=== PATIENT | female | born 1950 | race Caucasian/White ===

== ENCOUNTER 2016-09-27 18:21 | Emergency (ER) | payer OTHER, BC ==
[2016-09-27 18:29] VITALS: PULSE 81; TEMP 97.4; BMI 23.6
[2016-09-27 18:55] VITALS: BP 168/63
--- NOTE | 2016-09-27 19:48 | PDOC ---
History of Present Illness - General History Source: Patient Exam Limitations: No Limitations <Jian Kerns - Last Filed: 09/27/16 19:44> - General History Source: Patient Exam Limitations: No Limitations - History of Present Illness Initial Comments: 09/27/16 19:48 The patient is a 66 year old female, with a significant past medical history of trigeminal neuralgia, mitral valve prolapse and anxiety, who presents to the emergency department with chest pain onset today. She describes her chest pain as a burning tightness, ranging from mild to moderate, with radiation up her neck. She denies modifying factors. She states that she had an initial episode, which lasted a couple of minutes and completely resolved after her aftab class. She notes that she took Zantac with minimal to no relief of her pain. She reports that she currently has no pain. She states that she is currently going through some personal stress involving her for the last couple of days. She also states that this symptom seems similar to her previous anxiety episodes. She reports that prior to coming to the ED she went to an urgent care , who ended up sending her to the ED. The patient denies shortness of breath, headache and dizziness. Denies fever, chills, nausea, vomit, diarrhea and constipation. Allergies: Sulfur Past surgical history: None reported Social history: No alcohol, tobacco or drug use reported PMD: Dr. Franca Dean ([phone]) Dr. Pricilla Cook ([facility]) <Giuseppe Reddy - Last Filed: 09/27/16 19:56> - General Chief Complaint: Pain, Acute Stated Complaint: CHEST PAIN Time Seen by Provider: 09/27/16 19:11 Past History - Past Medical History Other medical history: trigeminal neuralgia - Psycho/Social/Smoking Cessation Hx Anxiety: No Suicidal Ideation: No Smoking History: Never smoked Hx Alcohol Use: No Drug/Substance Use Hx: No Substance Use Type: Alcohol <Jian Kerns - Last Filed: 09/27/16 19:44> <Giuseppe Reddy - Last Filed: 09/27/16 19:56> - Past Medical History Allergies/Adverse Reactions: Allergies Allergy/AdvReac Type Severity Reaction Status Date / Time sulfur [From Sulfur-8] Allergy Verified 09/27/16 18:22 Home Medications: Ambulatory Orders OXcarbazepine [Trileptal] 150 mg PO BID 03/07/15 Review of Systems - Review of Systems Able to Perform ROS?: Yes Cardiac (ROS): Yes: Chest Pain (Burning Tightness sensation ) All Other Systems: Reviewed and Negative <Giuseppe Reddy - Last Filed: 09/27/16 19:56> *Physical Exam - Vital Signs Last Vital Signs Temp Pulse Resp BP Pulse Ox 97.4 F L 81 16 168/63 100 09/27/16 18:22 09/27/16 18:22 09/27/16 18:22 09/27/16 18:48 09/27/16 18:22 <Jian Kerns - Last Filed: 09/27/16 19:44> - Vital Signs Last Vital Signs Temp Pulse Resp BP Pulse Ox 97.4 F L 81 16 168/63 100 09/27/16 18:22 09/27/16 18:22 09/27/16 18:22 09/27/16 18:48 09/27/16 18:22 - Physical Exam General Appearance: Yes: Nourished, Appropriately Dressed, Other (slightly anxious and teary during conversation) HEENT: positive: Normal Voice Neck: positive: Other (No JVD) Respiratory/Chest: positive: Lungs Clear, Normal Breath Sounds, Other (Speaks full sentences ) Cardiovascular: positive: Regular Rhythm, Regular Rate, Other (No murmur ) Gastrointestinal/Abdominal: positive: Flat, Soft, Other (Non-distended ) Extremity: positive: Normal Inspection Neurologic: positive: incident engineer II-XII NML intact, Fully Oriented, Alert, Other ( Slightly Anxious ) <Giuseppe Reddy - Last Filed: 09/27/16 19:56> Progress Note - Progress Note Progress Note: Dr. Dean was Called at 7:33pm regarding the patient. Dr. Mi covering. Dr. Mi was consulted regarding the patient at 7:40pm Dr. Mi states that they will see the patient on Friday09/30/16 as a walk in. <Giuseppe Reddy - Last Filed: 09/27/16 19:56> *DC/Admit/Observation/Transfer <Jian Kerns - Last Filed: 09/27/16 19:44> - Attestations Scribe Attestion: 09/27/16 19:55 Documentation prepared by Giuseppe Reddy, acting as medical illustrator for Jian Kerns MD. <Giuseppe Reddy - Last Filed: 09/27/16 19:56> Diagnosis at time of Disposition: Dyspepsia - Discharge Dispostion Disposition: HOME Condition at time of disposition: Stable - Patient Instructions Additional Instructions: RELAXATION ADN RELEASE TECHNIQUES DISCUSSED SEE YOUR DOCTOR ON FRIDAY RETURN IF WORSENING OR NEW SYMPTOMS (SHORTNESS OF BREATH, SEVERE CHEST PAIN) BALANCED DIET, AVOID CITROUS, SPICY FOODS EAT FREQUENT, SMALL MEALS THROUGHOUT THE DAY
--- NOTE | 2016-09-30 12:31 | EKG ---
Test Reason : Blood Pressure : / mmHG Vent. Rate : 073 BPM Atrial Rate : 073 BPM P-R Int : 180 ms QRS Dur : 078 ms QT Int : 382 ms P-R-T Axes : 029 012 043 degrees QTc Int : 420 ms NORMAL SINUS RHYTHM LOW VOLTAGE QRS BORDERLINE ECG WHEN COMPARED WITH ECG OF 27-SEP-2016 18:45, NO SIGNIFICANT CHANGE WAS FOUND Confirmed by ALLISON DON MD ([id number]) on 09/30/2016 12:31:46 PM Referred By: MD ADRIAN Confirmed By:ALLISON DON MD
--- NOTE | 2016-09-30 12:32 | EKG ---
Test Reason : Blood Pressure : / mmHG Vent. Rate : 072 BPM Atrial Rate : 072 BPM P-R Int : 188 ms QRS Dur : 088 ms QT Int : 382 ms P-R-T Axes : 067 001 036 degrees QTc Int : 418 ms NORMAL SINUS RHYTHM NORMAL ECG NO PREVIOUS ECGS AVAILABLE Confirmed by ALLISON DON MD ([id number]) on 09/30/2016 12:32:02 PM Referred By: MD GAO Confirmed By:ALLISON DON MD
== END 2016-09-27 20:18 | disposition home or self-care (01) ==
LOC: FER 18:21
DX: R10.13 Epigastric pain (principal); G50.0 Trigeminal neuralgia; I34.1 Nonrheumatic mitral (valve) prolapse; F41.9 Anxiety disorder, unspecified
CPT/HCPCS: 93005; 93010; 99281-25

== ENCOUNTER 2017-08-05 15:55 | Emergency (ER) | payer OTHER, BC ==
[2017-08-05 16:03] VITALS: BP 155/85; PULSE 70; TEMP 98.1; BMI 24.7
[2017-08-05] MEDS ORDERED: DIPHTH,PERTUSS(ACELL),TET 0.5 ML DISP.SYRIN IM ONE (16:04)
[2017-08-05] MEDS ORDERED: ACETAMINOPHEN 500 MG TABLET (FP) PO ONE (16:05)
--- NOTE | 2017-08-05 16:07 | PDOC ---
History of Present Illness <Keyonna Snow - Last Filed: 08/05/17 16:26> - General History Source: Patient Exam Limitations: No Limitations - History of Present Illness Initial Comments: 08/05/17 16:45 The patient is a 67-year-old female, with a significant past medical history of plantar fasciitis of LT foot, who presents to the ED s/p fall today at 2:30 PM. The patient states that she was walking in wedged shoes on [place] and lost her footing. She denies any head trauma but is now complaining of LT foot pain, RT knee pain, and RT elbow pain. Pt did scrape her right knee. She reports that she will be seeing her Orthopedic Surgeon on Wednesday 08/08. She denies having any other complaints. Orthopedic Surgeon: Dr. Mckay Borrero ([facility]) <Laina Farmer - Last Filed: 08/05/17 16:54> - General Chief Complaint: Injury Stated Complaint: LEFT FOOT PAIN Time Seen by Provider: 08/05/17 16:03 Past History - Past Medical History COPD: No Other medical history: TRIGEMINAL NEURALGIA - Suicide/Smoking/Psychosocial Hx Smoking History: Never smoked Have you smoked in the past 12 months: No Hx Alcohol Use: (OCCASIONAL) Drug/Substance Use Hx: No Substance Use Type: Alcohol <Keyonna Snow - Last Filed: 08/05/17 16:26> <Laina Farmer - Last Filed: 08/05/17 16:54> - Past Medical History Allergies/Adverse Reactions: Allergies Allergy/AdvReac Type Severity Reaction Status Date / Time Sulfa (Sulfonamide Allergy Verified 08/05/17 15:57 Antibiotics) Home Medications: Ambulatory Orders OXcarbazepine [Trileptal] 150 mg PO DAILY 03/07/15 Mv-Mn/Iron/FA/Herbal Cmplx#190 [Vitamin D3 Complete Caplet] 1 each PO DAILY Review of Systems - Review of Systems Able to Perform ROS?: Yes Comments:: 08/05/17 16:46 GENERAL/CONSTITUTIONAL: No fever or chills. No weakness. HEAD, EYES, EARS, NOSE AND THROAT: No change in vision. No ear pain or discharge. No sore throat. CARDIOVASCULAR: No chest pain or shortness of breath. RESPIRATORY: No cough, wheezing, or hemoptysis. GASTROINTESTINAL: No nausea, vomiting, diarrhea or constipation. GENITOURINARY: No dysuria, frequency, or change in urination. MUSCULOSKELETAL: No joint swelling or pain. No neck or back pain. EXTREMITIES: (+)Left foot pain, Right knee pain, Right elbow pain SKIN: (+)Scrape to right knee. NEUROLOGIC: No headache, vertigo, loss of consciousness, or change in strength/ sensation. ENDOCRINE: No increased thirst. No abnormal weight change. HEMATOLOGIC/LYMPHATIC: No anemia, easy bleeding, or history of blood clots. ALLERGIC/IMMUNOLOGIC: No hives or skin allergy. <Laina Farmer - Last Filed: 08/05/17 16:54> *Physical Exam - Vital Signs Last Vital Signs Temp Pulse Resp BP Pulse Ox 98.1 F 70 18 155/85 99 08/05/17 15:55 08/05/17 15:55 08/05/17 15:55 08/05/17 15:55 08/05/17 15:55 <Keyonna Snow - Last Filed: 08/05/17 16:26> - Vital Signs Last Vital Signs Temp Pulse Resp BP Pulse Ox 98.1 F 70 18 155/85 99 08/05/17 15:55 08/05/17 15:55 08/05/17 15:55 08/05/17 15:55 08/05/17 15:55 - Physical Exam Comments: 08/05/17 16:47 GENERAL: Awake, alert, and fully oriented, in no acute distress HEAD: Atraumatic, No signs of trauma EYES: PERRLA, EOMI, sclera anicteric, conjunctiva clear ENT: Auricles normal inspection, nares patent, oropharynx clear without exudates. Moist mucosa. NECK: Normal ROM, supple, no lymphadenopathy, JVD, or masses LUNGS: Breath sounds equal, clear to auscultation bilaterally. No wheezes, and no crackles HEART: Regular rate and rhythm, normal S1 and S2, no murmurs, rubs or gallops ABDOMEN: Soft, nontender, normoactive bowel sounds. No guarding, no rebound. No masses EXTREMITIES: (+)Lateral 4th and 5th metatarsal tenderness; RT Knee: There is a superficial laceration. No effusions, no ecchymosis. No malleolar tenderness. No elbow deformity. Skin of right elbow is intact. Full range of motion of hips and kneesNo clubbing or cyanosis. No cords. NEUROLOGICAL: SKIN: Warm, Dry, normal turgor, no rashes or lesions noted <Laina Farmer - Last Filed: 08/05/17 16:54> Procedures - Splinting Splint Location: Left: Foot Pre-Proc Neuro Vasc Exam: normal Hand-Made Type: orthoglass Splint Type: Yes: Posterior <Keyonan Snow - Last Filed: 08/05/17 16:26> ED Treatment Course - RADIOLOGY Radiology Studies Ordered: Category Date Time Status FOOT-LEFT [RAD] Stat Radiology 08/05/17 15:59 Ordered <Keyonna Snow - Last Filed: 08/05/17 16:26> Medical Decision Making - Medical Decision Making 08/05/17 16:05 67-year-old female with a prior left foot injury here today with status post fall complaining of left foot pain right knee abrasion and right elbow pain. Patient states she tripped on [employer] around 2:30 PM twisting her left ankle and landing on her right knee. No head injury no LOC pain is moderate ambulating with a limp took Motrin prior to arrival with some relief On exam she has minimal left lateral dorsal foot tenderness no ecchymosis or swelling ankle is nontender. Right knee has a superficial abrasion but is fully intact FROM. Right elbow is nontender, FROM. Head is atraumatic Plan x-ray of the left foot to rule out fracture, bacitracin to her wound, tetanus and Tylenol for pain control likely flat soled shoe and crutches as needed and outpatient podiatry follow-up which she has scheduled for this following Friday 4 days from today 08/05/17 16:24 xray concerning for [place] fx. will splint posterior splint, crutches and non weight bearing until follow up with podiatry in 4 days. <Keyonna Snow - Last Filed: 08/05/17 16:26> *DC/Admit/Observation/Transfer <Keyonna Snow - Last Filed: 08/05/17 16:26> - Attestations Scribe Attestion: 08/05/17 16:54 Documentation prepared by Laina Farmer, acting as medical device sales for Keyonna Snow MD. <DarianLaina - Last Filed: 08/05/17 16:54> Diagnosis at time of Disposition: [place] fracture - Discharge Dispostion Disposition: HOME Condition at time of disposition: Improved - Referrals Referrals: Franca Dean [Primary Care Provider] - - Patient Instructions Printed Discharge Instructions: Foot Fracture Additional Instructions: Wear splint until follow-up with your ticket manager. You should not put any weight on that left foot. Use crutches to aid with ambulation. Take ibuprofen 600 mg every 8 hours as needed for pain. Elevate foot to reduce swelling and therefore pain. Return for any problems or concerns - Post Discharge Activity
[2017-08-05] MEDS ORDERED: ACETAMINOPHEN 500 MG TABLET (FP) ONE (16:17)
== END 2017-08-05 16:40 | disposition home or self-care (01) ==
LOC: FER 15:55
PROC: 2W3RX1Z Immobilization of Left Lower Leg using Splint (ICD-10-PCS; principal; 2017-08-05)
PROC: 3E0234Z Introduction of Serum, Toxoid and Vaccine into Muscle, Percutaneous Approach (ICD-10-PCS; 2017-08-05)
DX: S92.355A Nondisplaced fracture of fifth metatarsal bone, left foot, initial encounter for closed fracture (principal); W18.39XA Other fall on same level, initial encounter; Y93.89 Activity, other specified; Y92.9 Unspecified place or not applicable
CPT/HCPCS: 29515; 73630-TC-LT; 90471; 90715; 99282-25

== ENCOUNTER 2018-02-27 14:50 | Emergency (ER) | payer OTHER, BC ==
[2018-02-27 14:58] VITALS: BP 152/92; PULSE 69; TEMP 98.4; BMI 25.0
--- NOTE | 2018-02-27 14:58 | PDOC ---
History of Present Illness - General History Source: Patient Exam Limitations: No Limitations <Keyonna Snow - Last Filed: 02/27/18 16:36> - General History Source: Patient Exam Limitations: No Limitations - History of Present Illness Initial Comments: 02/27/18 15:05 The patient is a 68 year old female, with a significant past medical history of trigeminal neuralgia and left metatarsal fracture, who presents to the emergency department s/p mechanical fall at approximately 12:45, with headache and nausea. Patient reports she was outside when she tripped and fell, landing on her right side and hitting her head. Patient reports associated headache, right eye pain/swelling, right knee pain/abrasion, and right wrist pain/ abrasion. Patient reports taking Tylenol for her symptoms with minimal relief. During her ride home, patient reports developing nausea, but denies any abdominal pain, vomiting, diarrhea, or constipation. She denies any loss of consciousness, blurry vision, double vision, neck/back pain, dizziness, or lightheadedness. She denies any chest pain, shortness of breath, diaphoresis, or palpitations. Patient reports she is not on any blood thinners. She denies any recent travel or sick contacts. Patient's last tetanus shot was in July 2017. Allergies: Sulfa(Sulfonamide antibiotics) Past Surgical History: None reported Social History: Non smoker. No ETOH or recreational drug use. <Yaw White - Last Filed: 02/27/18 16:53> - General Chief Complaint: Injury Stated Complaint: HEAD/FACE INJURY, TRIP AND FALL Time Seen by Provider: 02/27/18 14:51 Past History - Past Medical History COPD: No Other medical history: TRIGEMINAL NEURALGIA, LF METATARSAL FX - Suicide/Smoking/Psychosocial Hx Smoking History: Never smoked Have you smoked in the past 12 months: No Hx Alcohol Use: No Drug/Substance Use Hx: No Substance Use Type: Alcohol <Keyonna Snow - Last Filed: 02/27/18 16:36> <Yaw White - Last Filed: 02/27/18 16:53> - Past Medical History Allergies/Adverse Reactions: Allergies Allergy/AdvReac Type Severity Reaction Status Date / Time Sulfa (Sulfonamide Allergy Verified 02/27/18 14:51 Antibiotics) Home Medications: Ambulatory Orders OXcarbazepine [Trileptal] 300 mg PO DAILY 03/07/15 Acetaminophen [Tylenol -] 1,000 mg PO ASDIR 02/27/18 Review of Systems - Review of Systems Able to Perform ROS?: Yes Comments:: 02/27/18 15:05 GENERAL/CONSTITUTIONAL: No fever or chills. No weakness. HEAD, EYES, EARS, NOSE AND THROAT: +Right eye pain and swelling. No change in vision. No ear pain or discharge. No sore throat. CARDIOVASCULAR: No chest pain or shortness of breath. RESPIRATORY: No cough, wheezing, or hemoptysis. GASTROINTESTINAL: +Nausea. No abdominal pain, vomiting, diarrhea or constipation. GENITOURINARY: No dysuria, frequency, or change in urination. MUSCULOSKELETAL: +Right wrist pain/abrasion, right knee pain/abrasion. No neck or back pain. SKIN: No rash NEUROLOGIC: +Headache. No vertigo, loss of consciousness, or change in strength/ sensation. ENDOCRINE: No increased thirst. No abnormal weight change. HEMATOLOGIC/LYMPHATIC: No anemia, easy bleeding, or history of blood clots. ALLERGIC/IMMUNOLOGIC: No hives or skin allergy. <Yaw White - Last Filed: 02/27/18 16:53> *Physical Exam - Vital Signs Last Vital Signs Temp Pulse Resp BP Pulse Ox 98.4 F 69 18 152/92 100 02/27/18 14:50 02/27/18 14:50 02/27/18 14:50 02/27/18 14:50 02/27/18 14:50 <Keyonna Snow - Last Filed: 02/27/18 16:36> - Vital Signs Last Vital Signs Temp Pulse Resp BP Pulse Ox 98.4 F 69 18 152/92 100 02/27/18 14:50 02/27/18 14:50 02/27/18 14:50 02/27/18 14:50 02/27/18 14:50 - Physical Exam Comments: 02/27/18 15:05 GENERAL: Awake, alert, and fully oriented, in no acute distress HEAD: Right maxillary periorbital edema, but no step-offs or bony crepitus. No other signs of trauma. Jaw nontender to palpation. EYES: PERRLA, EOMI, sclera anicteric, conjunctiva clear ENT: Auricles normal inspection, hearing grossly normal, nares patent. Moist mucosa NECK: Normal ROM, supple, no lymphadenopathy, JVD, or masses LUNGS: Breath sounds equal, clear to auscultation bilaterally. No wheezes, and no crackles HEART: Regular rate and rhythm, normal S1 and S2, no murmurs, rubs or gallops ABDOMEN: Soft, nontender, normoactive bowel sounds. No guarding, no rebound. No masses BACK: No c-spine or midline tenderness. EXTREMITIES: Right wrist abrasion and mild ecchymosis, full range of motion, no palpable tenderness, no snuffbox tenderness. Bilateral knee abrasions, but full ROM. Normal range of motion at the remainder of the extremities, no edema. No erythema, or tenderness. DP/PT pulses 2+ and symmetric. Warm and well perfused. NEUROLOGICAL: Moves all extremities. Normal speech, normal gait. 5/5 motor strength in all extremities. SKIN: Warm, Dry, normal turgor, no rashes or lesions noted. <Yaw White - Last Filed: 02/27/18 16:53> ED Treatment Course - RADIOLOGY Radiograph Interpretation: 02/27/18 16:29 EXAM: CT Facial bones INTERPRETED BY: Dr. Mcdonough REVIEWED BY: Dr. Snow IMPRESSION: Limited examination, as described above. Inferior aspect of the mandible including the chin was not included on this exam No gross fracture is identified. 1.3 cm retention cyst in the left maxillary antrum, inferiorly with adjacent mild mucosal thickening. There is also a subcentimeter retention cyst in the sphenoid sinus, on the left. Both orbits appear unremarkable. EXAM: Head CT INTERPRETED BY: Dr. Mcdonough REVIEWED BY: Dr. Snow IMPRESSION: Mild volume. Ill-defined focal parenchymal low-attenuation density in the right posterior frontal/parietal junction. It is unclear whether this represents an artifact versus an acute/subacute infarct. Correlate clinically and follow-up CT scan or MRI of the brain is needed for further evaluation. EXAM: CR Right wrist INTERPRETED BY: Dr. Freedman REVIEWED BY: Dr. Snow IMPRESSION: No acute right wrist pathology. <Yaw White - Last Filed: 02/27/18 16:53> Medical Decision Making - Medical Decision Making 02/27/18 14:56 68-year-old female here status post trip and fall complaining of headache nausea right-sided facial pain and right wrist pain bilateral knee abrasions. On exam she has right periorbital swelling and edema extraocular motions are intact pupils are equally round and reactive head is otherwise atraumatic cervical spine is nontender right wrist is with full range of motion there is some superficial abrasions and small ecchymosis no snuffbox tenderness elbow and shoulder are nontender lower extremities are noted for bilateral superficial knee abrasions but full range of motion no deformities no effusion Plan x-ray of the right wrist CT head and maxillofacial patient declined pain medication does not want anything for nausea likely if negative DC home 02/27/18 16:[address] head read as possible subacute vs. acute infarct vs. artifact. no nuero symtpoms .no weakness on exam. states she tripped and fell did not fall out of weakness. pt has a nuerologist guillaume fabian out of [place] who she sees for trigeminal nueralgia. will call to discuss findings and arrange close followup. [phone] ex [phone]. <Keyonna Snow - Last Filed: 02/27/18 16:36> - Medical Decision Making 02/27/18 16:38 First call placed to Dr. Fabian at 16:38. Awaiting call back. <Yaw White - Last Filed: 02/27/18 16:53> *DC/Admit/Observation/Transfer <Keyonna Snow - Last Filed: 02/27/18 16:36> - Attestations Scribe Attestion: 02/27/18 15:06 Documentation prepared by Yaw White, acting as medical scientific liaison for Keyonna Snow MD. <Yaw White - Last Filed: 02/27/18 16:53> Diagnosis at time of Disposition: Head trauma, Abrasion of wrist, right - Discharge Dispostion Disposition: HOME Condition at time of disposition: Improved - Patient Instructions Printed Discharge Instructions: Concussion Additional Instructions: you can take ibuprofen 600 mg every 8 hrs as needed for pain. follow up with your primary doctor. return for any problems or concerns. such as confusion, vomiting. weakness worsening headache or any problems.
== END 2018-02-27 17:00 | disposition home or self-care (01) ==
LOC: FER 14:50
DX: S60.811A Abrasion of right wrist, initial encounter (principal); S09.90XA Unspecified injury of head, initial encounter; W18.39XA Other fall on same level, initial encounter; Y93.89 Activity, other specified; Y92.9 Unspecified place or not applicable; G50.0 Trigeminal neuralgia
CPT/HCPCS: 70450-TC; 70486-TC; 73110-TC-RT-FY; 99284-25